=== PATIENT | female | born 1980 | race Asian ===

== ENCOUNTER 2020-07-26 07:22 | Emergency (ER) | payer BC ==
[~2020-07-26] VITALS: Ht 157.5 cm; Wt 54.0 kg
[2020-07-26 07:35] VITALS: BP_SYST 119
--- NOTE | 2020-07-26 07:40 | NUR ---
Patient triaged and placed in waiting room. VSS and patient appears in no acute distress at this time. Awaiting available bed, and MD notified of need for MSE.
--- NOTE | 2020-07-26 07:56 | NUR ---
Patient called, no answer. She is not in waiting room or in the front. Patient left without being seen.
[2020-07-26 07:57] VITALS: BP_SYST 119
== END 2020-07-26 07:56 | disposition left against medical advice (07) ==
LOC: SED 07:22
DX: M79.644 Pain in right finger(s) (principal); Z53.21 Procedure and treatment not carried out due to patient leaving prior to being seen by health care provider